=== PATIENT | female | born 1960 | race Asian ===

== ENCOUNTER 2023-12-05 06:05 | Day surgery (SDC) | payer OTHER ==
[~2023-12-05 06:05] MED LIST: SODIUM CHLORIDE 0.9% 1,000 ML ONE
[2023-12-05] MEDS ORDERED: BENZ-227 PO (07:40)
[2023-12-05] MEDS ORDERED: CELE100 PO (07:40)
[2023-12-05] MEDS ORDERED: ASPI-1450 PO (07:40)
[2023-12-05] MEDS ORDERED: KETO-99 OU (07:40)
[2023-12-05] MEDS ORDERED: BACL10TA PO (07:40)
[2023-12-05] MEDS ORDERED: ATOR40TA28 PO (07:40)
[2023-12-05] MEDS ORDERED: MIDAZOLAM HCL 2 MG/2 ML VIAL ONE (08:02)
[2023-12-05] MEDS ORDERED: FentaNYL CITRATE PF 100 MCG/2 ML VIAL ONE (08:03)
[2023-12-05] MEDS: SODIUM CHLORIDE 0.9% 1,000 ML IV ONE (08:24)
[2023-12-05 08:48] VITALS: PULSE 107; RESP 16; O2SAT 100
[2023-12-05] MEDS ORDERED: MethylPREDNISolone SOD SUCC 125 MG/2 ML VIAL ONE (09:02)
[2023-12-05] MEDS: MethylPREDNISolone SOD SUCC 125 MG/2 ML VIAL IVP ONE (09:19)
[2023-12-05] MEDS ORDERED: LIDOCAINE 4% 50 ML SOLUTION ONE (12:00)
[2023-12-05] MEDS ORDERED: BENZOCAINE 20% 50 MCG/SPRAY 57 GM ONE (12:00)
[2023-12-05] MEDS ORDERED: LIDOCAINE 2% 11 ML JELLY ONE (12:00)
[2023-12-05] MEDS ORDERED: LEVALBUTEROL 1.25 MG/0.5 ML NEB SOLUTION NEB ONE (12:00)
== END 2023-12-05 10:45 | disposition home or self-care (01) ==
LOC: SURGERY 06:05
PROVIDERS: ATTEND Internal Medicine Critical Care Medicine
DX: R05.3 Chronic cough (principal); J38.4 Edema of larynx; B37.0 Candidal stomatitis; R91.8 Other nonspecific abnormal finding of lung field; R06.2 Wheezing; J98.8 Other specified respiratory disorders; J91.8 Pleural effusion in other conditions classified elsewhere; J84.10 Pulmonary fibrosis, unspecified; R07.9 Chest pain, unspecified; D64.9 Anemia, unspecified; E78.00 Pure hypercholesterolemia, unspecified; Z79.899 Other long term (current) drug therapy; Z98.818 Other dental procedure status; Z98.890 Other specified postprocedural states; Z91.013 Allergy to seafood
CPT/HCPCS: 31623; 31624; 71045; 87015; 87070; 87101; 87206; 87220; 88108; 93005; 94640; J2250; J2919; J3010; J7030; Q9967; Z7610